=== PATIENT | female | born 2000 | race Caucasian/White ===

== ENCOUNTER 2021-12-09 03:24 | Emergency (ER) | payer OTHER ==
[~2021-12-09] VITALS: Ht 154.9 cm; Wt 62.7 kg
[2021-12-09] MEDS ORDERED: NEOSPORIN OINT 0.9 GM PKT TOP ONE (07:15)
[2021-12-09] MEDS ORDERED: LIDOCAINE 1% MDV 20ML VIAL SC ONE (07:15)
[2021-12-09 08:22] VITALS: BP 112/76
== END 2021-12-09 08:25 | disposition home or self-care (01) ==
LOC: M ED 03:24
DX: S71.112A Laceration without foreign body, left thigh, initial encounter (principal); X58.XXXA Exposure to other specified factors, initial encounter; Y92.9 Unspecified place or not applicable; Y93.9 Activity, unspecified; Y99.9 Unspecified external cause status; F10.10 Alcohol abuse, uncomplicated